=== PATIENT | female | born 1945 | race Caucasian/White ===

== ENCOUNTER 2022-05-12 10:10 | Inpatient (IN) | payer MEDICARE, OTHER ==
[~2022-05-12] VITALS: Ht 152.4 cm; Wt 85.0 kg
[2022-05-12 10:29] VITALS: BP 133/47
[2022-05-12] MEDS ORDERED: TRAZ-182 PO (11:30)
[2022-05-12] MEDS ORDERED: BENZ-13 PO (11:30)
[2022-05-12] MEDS ORDERED: LEVO100T78 PO (11:30)
[2022-05-12] MEDS ORDERED: METF-442 PO (11:30)
[2022-05-12] MEDS ORDERED: PREG75CA PO (11:30)
[2022-05-12] MEDS ORDERED: LOSA100T3 PO (11:30)
[2022-05-12] MEDS ORDERED: NEBI5TAB8 PO (11:30)
[2022-05-12] MEDS ORDERED: DEXTROSE 50% 50 ML DISP.SYRIN IV PRN (11:45)
[2022-05-12] MEDS ORDERED: INSULIN REGULAR, HUMAN 300 UNITS/3 ML VIAL SQ PRN (11:45)
[2022-05-12] MEDS ORDERED: BENZONATATE 100 MG CAPSULE PO PRN (13:00)
[2022-05-12] MEDS: PREGABALIN 25 MG CAPSULE PO SCH ×2 (13:16→16:59)
[2022-05-12] MEDS ORDERED: DOCUSATE SODIUM 100 MG CAPSULE PO PRN (14:00)
[2022-05-12] MEDS ORDERED: ONDANSETRON 4 MG/2 ML VIAL IV PRN (14:00)
[2022-05-12] MEDS ORDERED: MAGNESIUM HYDROXIDE 30 ML LIQUID UDC PO PRN (14:00)
[2022-05-12] MEDS ORDERED: ACETAMINOPHEN 325 MG TABLET PO PRN (14:00)
[2022-05-12 14:44] VITALS: BP 131/49
[2022-05-12 14:57] LABS: HEMATOCRIT 32.6 % (31.2-41.9); MEAN CORPUSCULAR HEMOGLOBIN 28.7 uug (24.7-32.8); MEAN CORPUSCULAR VOLUME 89.3 fL (75.5-95.3); PLATELET COUNT (AUTO) 394 K/uL (179-408)
[2022-05-12 15:14] LABS: CARBON DIOXIDE 27 mmol/L (21-32); CHLORIDE 98 mmol/L (98-107); CREATININE 0.9 mg/dL (0.6-1.3); GLUCOSE 177 mg/dL (74-106); POTASSIUM 5.2 mmol/L (3.5-5.1); UREA NITROGEN, BLOOD 21 mg/dL (7-18)
[2022-05-12 15:18] LABS: MAGNESIUM 1.7 mg/dL (1.8-2.4); PHOSPHOROUS 4.4 mg/dL (2.5-4.9)
[2022-05-12 15:40] LABS: IRON, SERUM 37 ug/dL (50-175)
[2022-05-12 16:01] LABS: *BILIRUBIN,URIN NEGATIVE (NEGATIVE); *BLOOD, URINE NEGATIVE (NEGATIVE); *COLOR,URINE YELLOW (YELLOW); *KETONES,URINE NEGATIVE (NEGATIVE); *UROBILINOGEN,URINE 0.2 E.U./dl (NORMAL); LEUKOCYTE ESTERASE ,URINE TRACE (NEGATIVE); NITRITE, URINE NEGATIVE (NEGATIVE); PH,URINE 5.5 (5.0-8.0); UGLUCOSE TRACE (NEGATIVE)
[2022-05-12 16:09] LABS: *CLARITY,URINE HAZY (CLEAR)
[2022-05-12 16:13] LABS: BACTERIA,URINE FEW /HPF (NONE SEEN); SQUAMOUS EPITHELIAL CELL,UR NONE SEEN /HPF (NONE SEEN)
--- NOTE | 2022-05-12 16:30 | NUR ---
Pt admitted to Tele with SNR 1 deg av block with rate of 62. PT anguillan speaking as primary language but able to converse in simple Kazakh conversation. Noted redness on BOBO LE's with + 4 edema. Negative Homans sign Legs elevated to promote decrease in swelling. IV on left hand intact no s/s of infiltration. Pt denies any c/o pain. Received admitting orders. Pt ambulatory to bathroom with good balance independently. Call light is within reach.
[2022-05-12] MEDS: NEBIVOLOL 5 MG PO SCH (16:55)
[2022-05-12] MEDS: METFORMIN 1000MG TABLET PO SCH (16:55)
[2022-05-12] MEDS: BLOOD SUGAR DIAGNOSTIC 1 EACH STRIP VI SCH ×2 (16:59→20:21)
[2022-05-12] MEDS: INSULIN REGULAR, HUMAN 300 UNIT/3 ML VIAL SQ PRN (17:01)
--- NOTE | 2022-05-12 19:30 | NUR ---
Received patient lying in bed. AAOx4. Mainly Nepali speaking. In no apparent distress. Denies any SOB. Complain of pain on BLE pain. BLE with severe edema. Encourage to elevate while lying in bed. Left hand PIV intact and patent. Sinus coy on tele with HR of 55/min. Needs assessed and attended to. Safety measure initiated and call light within reached.
[2022-05-12] MEDS: CEFAZOLIN 2 G in IV DEXTROSE 5% 100 ML IV SCH (20:18)
[2022-05-12] MEDS: MELATONIN 3 MG TABLET PO PRN (20:18)
[2022-05-12] MEDS: TRAZODONE 50 MG TABLET PO SCH (20:18)
[2022-05-12] MEDS: INSULIN GLARGINE,HUM 300 UNITS/3 ML CARTRIDGE SQ SCH (20:24)
[2022-05-12 20:41] VITALS: BP 102/39
[2022-05-12] MEDS ORDERED: CEFAZOLIN 1 G VIAL IM SCH (22:00)
--- NOTE | 2022-05-12 22:00 | NUR ---
Noted left hand swollen, PIV appears to be infiltrated. Discontinued PIV on left hand and place new PIV on right FA #[id number].
[2022-05-13 00:11] VITALS: BP 120/39
[2022-05-13 04:00] VITALS: BP 123/44
[2022-05-13] MEDS: CEFAZOLIN 2 G in IV DEXTROSE 5% 100 ML IV SCH ×3 (04:16→20:24)
[2022-05-13] MEDS: TRAMADOL HCL 50 MG TABLET PO PRN ×2 (04:21→13:50)
--- NOTE | 2022-05-13 05:29 | NUR ---
No adverse reaction noted from IV antibiotic. SR with 1st degree AVB on tele with HR of 58/min. Tramadol given for complain of pain on BLE and effective. Needs attended to and met. Safety measure maintained and call light within reached.
[2022-05-13] MEDS: LEVOTHYROXINE SODIUM 100 MCG TABLET PO SCH (06:04)
[2022-05-13] MEDS: BLOOD SUGAR DIAGNOSTIC 1 EACH STRIP VI SCH ×4 (06:30→20:24)
--- NOTE | 2022-05-13 08:00 | NUR ---
Pt is in no acute distress. Offered ice on left arm (prior iv site) swelling pt refused. Discussed plan of care with pt re: pain management. Pt agreeable with plan of care. Call light is within reach.
[2022-05-13 08:20] LABS: HEMATOCRIT 32.6 % (31.2-41.9); MEAN CORPUSCULAR HEMOGLOBIN 29.3 uug (24.7-32.8); MEAN CORPUSCULAR VOLUME 88.1 fL (75.5-95.3); PLATELET COUNT (AUTO) 434 K/uL (179-408)
[2022-05-13 08:47] LABS: CARBON DIOXIDE 27 mmol/L (21-32); CHLORIDE 100 mmol/L (98-107); CREATININE 0.7 mg/dL (0.6-1.3); GLUCOSE 111 mg/dL (74-106); MAGNESIUM 1.9 mg/dL (1.8-2.4); PHOSPHOROUS 3.3 mg/dL (2.5-4.9); POTASSIUM 4.6 mmol/L (3.5-5.1); UREA NITROGEN, BLOOD 17 mg/dL (7-18)
[2022-05-13] MEDS: METFORMIN 1000MG TABLET PO SCH ×2 (08:48→16:58)
[2022-05-13] MEDS: FUROSEMIDE 20 MG/2 ML VIAL IV SCH (08:48)
[2022-05-13] MEDS: NEBIVOLOL 5 MG PO SCH ×2 (08:48→16:58)
[2022-05-13] MEDS: PREGABALIN 25 MG CAPSULE PO SCH ×3 (08:48→17:00)
[2022-05-13] MEDS: INSULIN REGULAR, HUMAN 300 UNIT/3 ML VIAL SQ PRN (08:50)
[2022-05-13] MEDS ORDERED: LOSARTAN POTASSIUM 50 MG TABLET PO SCH (09:00)
[2022-05-13 09:47] LABS: CHOLESTEROL 231 mg/dL (<200); HDL CHOLESTEROL 74 mg/dL (40-60); TRIGLYCERIDES 125 MG/DL (30-150)
[2022-05-13 11:34] VITALS: BP 138/51
[2022-05-13] MEDS: SOD FERRIC GLUC COMPLX/SUCROSE 125 MG in IV NORMAL SALINE 100 ML IV SCH (13:48)
[2022-05-13] MEDS: ASPIRIN 81 MG TAB.CHEW PO SCH (14:38)
[2022-05-13 15:42] VITALS: BP 139/44
--- NOTE | 2022-05-13 19:30 | NUR ---
Received patient lying in bed. AAOx4. In no apparent distress. No complain of pain or SOB at this time. Midline on left upper arm intact and patent. NSR on tele with HR of 62/min. Needs assessed and attended to. Safety measure initiated and call light within reached.
[2022-05-13 20:10] VITALS: BP 152/56
[2022-05-13] MEDS: MELATONIN 3 MG TABLET PO PRN (20:24)
[2022-05-13] MEDS: ATORVASTATIN 20 MG TABLET PO SCH (20:24)
[2022-05-13] MEDS: TRAZODONE 50 MG TABLET PO SCH (20:24)
[2022-05-13] MEDS: INSULIN GLARGINE,HUM 300 UNITS/3 ML CARTRIDGE SQ SCH (20:25)
[2022-05-14 00:05] VITALS: BP 153/62
[2022-05-14] MEDS: CEFAZOLIN 2 G in IV DEXTROSE 5% 100 ML IV SCH ×3 (03:16→20:11)
[2022-05-14] MEDS: TRAMADOL HCL 50 MG TABLET PO PRN ×3 (03:24→21:07)
[2022-05-14 04:15] VITALS: BP 152/60
--- NOTE | 2022-05-14 05:17 | NUR ---
No adverse reaction noted from IV antibiotic. Sinus coy with 1st degree AVB on tele with HR of 48/min. Tramadol given for complain of pain on BLE and effective. Needs attended to and met. Assisted to bathroom ad judie. Safety measure maintained and call light within reached.
[2022-05-14] MEDS: LEVOTHYROXINE SODIUM 100 MCG TABLET PO SCH (06:04)
[2022-05-14] MEDS: BLOOD SUGAR DIAGNOSTIC 1 EACH STRIP VI SCH ×4 (06:38→20:09)
[2022-05-14 07:38] LABS: HEMATOCRIT 34.1 % (31.2-41.9); MEAN CORPUSCULAR HEMOGLOBIN 28.8 uug (24.7-32.8); MEAN CORPUSCULAR VOLUME 87.8 fL (75.5-95.3); PLATELET COUNT (AUTO) 455 K/uL (179-408)
[2022-05-14 07:45] LABS: CREATININE 0.7 mg/dL (0.6-1.3); PHOSPHOROUS 3.6 mg/dL (2.5-4.9); POTASSIUM 4.4 mmol/L (3.5-5.1)
--- NOTE | 2022-05-14 08:00 | NUR ---
AWAKET AND ORIENTED X3 [place]OH[place] SPEAKING C/O OF ON AND OFF LEG PAIN. ENCOURAGED TO STAY IN BED AND ELEVATE BLE. DENIES SOB BUT C/O MILD TO MODERATE PAIN. CONTINUE WITH PAIN MANAGEMENT
[2022-05-14] MEDS: FUROSEMIDE 20 MG/2 ML VIAL IV SCH (08:20)
[2022-05-14] MEDS: PREGABALIN 25 MG CAPSULE PO SCH ×3 (08:20→17:14)
[2022-05-14] MEDS: ASPIRIN 81 MG TAB.CHEW PO SCH (08:20)
[2022-05-14] MEDS: METFORMIN 1000MG TABLET PO SCH ×2 (08:21→17:14)
[2022-05-14] MEDS: LISINOPRIL 10 MG TABLET PO SCH (08:21)
[2022-05-14] MEDS: NEBIVOLOL 5 MG PO SCH ×2 (08:22→17:14)
[2022-05-14 11:41] VITALS: BP 139/55
--- NOTE | 2022-05-14 12:00 | NUR ---
NO ACUTE CHANGE STATUS FROM MORNING ASSESSMENT
[2022-05-14] MEDS: SOD FERRIC GLUC COMPLX/SUCROSE 125 MG in IV NORMAL SALINE 100 ML IV SCH (14:56)
[2022-05-14 16:14] VITALS: BP 135/51
--- NOTE | 2022-05-14 16:45 | NUR ---
CONTINUE TELE STATUS ORDERED REMAINS SR ON MONITOR
--- NOTE | 2022-05-14 19:30 | NUR ---
Received patient lying in bed. AAOx4. In no apparent distress. No complain of pain to BLE at this time. No SOB. Midline on left upper arm intact and patent. Sinus coy on tele with HR of 54/min. Needs assessed and attended to. Safety measure initiated and call light within reached.
[2022-05-14 19:34] VITALS: BP 111/46
[2022-05-14] MEDS: ATORVASTATIN 20 MG TABLET PO SCH (20:06)
[2022-05-14] MEDS: MELATONIN 3 MG TABLET PO PRN (20:06)
[2022-05-14] MEDS: TRAZODONE 50 MG TABLET PO SCH (20:06)
[2022-05-14] MEDS: INSULIN GLARGINE,HUM 300 UNITS/3 ML CARTRIDGE SQ SCH (20:10)
[2022-05-14 23:50] VITALS: BP 120/51
[2022-05-15] MEDS: CEFAZOLIN 2 G in IV DEXTROSE 5% 100 ML IV SCH ×3 (04:03→20:28)
[2022-05-15 04:31] VITALS: BP 150/63
--- NOTE | 2022-05-15 05:54 | NUR ---
Slept well during the night. No adverse reaction noted from IV antibiotic. Sinus coy with 1st degree AVB on tele with HR of 46/min. Tessalon gabino given for cough and effective. Tramadol given for complain of pain on BLE and effective. Needs attended to and met. Assisted to bathroom ad judie. Safety measure maintained and call light within reached.
[2022-05-15] MEDS: LEVOTHYROXINE SODIUM 100 MCG TABLET PO SCH (06:08)
[2022-05-15] MEDS: BLOOD SUGAR DIAGNOSTIC 1 EACH STRIP VI SCH ×4 (06:38→20:22)
[2022-05-15 06:57] LABS: HEMATOCRIT 36.5 % (31.2-41.9); MEAN CORPUSCULAR HEMOGLOBIN 28.8 uug (24.7-32.8); MEAN CORPUSCULAR VOLUME 88.4 fL (75.5-95.3); PLATELET COUNT (AUTO) 503 K/uL (179-408)
--- NOTE | 2022-05-15 08:00 | NUR ---
AWAKE ALERT AND ORIENTED X3 PORTUGUES[place] SPEAKING DENIES ACUTE PAIN OR RESPIRATORY DISTRESS. DENIES ACUTE PAIN SR ON MONITOR
[2022-05-15 08:37] LABS: CARBON DIOXIDE 31 mmol/L (21-32); CHLORIDE 103 mmol/L (98-107); CREATININE 0.7 mg/dL (0.6-1.3); GLUCOSE 92 mg/dL (74-106); POTASSIUM 4.7 mmol/L (3.5-5.1); UREA NITROGEN, BLOOD 14 mg/dL (7-18)
[2022-05-15] MEDS: FUROSEMIDE 20 MG/2 ML VIAL IV SCH (08:37)
[2022-05-15] MEDS: ASPIRIN 81 MG TAB.CHEW PO SCH (08:37)
[2022-05-15] MEDS: LISINOPRIL 10 MG TABLET PO SCH (08:37)
[2022-05-15] MEDS: PREGABALIN 25 MG CAPSULE PO SCH ×3 (08:37→16:24)
[2022-05-15] MEDS: TRAMADOL HCL 50 MG TABLET PO PRN ×2 (08:37→20:20)
[2022-05-15 08:38] LABS: MAGNESIUM 1.9 mg/dL (1.8-2.4); PHOSPHOROUS 3.5 mg/dL (2.5-4.9)
[2022-05-15] MEDS: METFORMIN 1000MG TABLET PO SCH ×2 (08:43→16:25)
[2022-05-15] MEDS: NEBIVOLOL 5 MG PO SCH ×2 (08:43→16:25)
[2022-05-15 11:36] VITALS: BP 152/57
[2022-05-15 11:39] VITALS: BP 152/57
--- NOTE | 2022-05-15 12:00 | NUR ---
SEEN BY PHYSICAL THERAPIST SEE NOTES
[2022-05-15] MEDS: SOD FERRIC GLUC COMPLX/SUCROSE 125 MG in IV NORMAL SALINE 100 ML IV SCH (13:59)
[2022-05-15] MEDS ORDERED: LISI10TA29 PO (14:42)
[2022-05-15] MEDS ORDERED: MELA3TAB41 PO (14:42)
[2022-05-15] MEDS ORDERED: Blood Sugar Diagnostic VI (14:42)
[2022-05-15] MEDS ORDERED: TRAM50TA2 PO (14:42)
[2022-05-15] MEDS ORDERED: ONDA4VIA23 PO (14:42)
[2022-05-15] MEDS ORDERED: MAGN400O6 PO (14:42)
[2022-05-15] MEDS ORDERED: ATOR20TA PO (14:42)
[2022-05-15] MEDS ORDERED: DEXT50DI8 IV (14:42)
[2022-05-15] MEDS ORDERED: ASPI81TA31 PO (14:42)
[2022-05-15] MEDS ORDERED: ACET325T53 PO (14:42)
[2022-05-15] MEDS ORDERED: Insulin Glargine,Hum SQ (14:42)
[2022-05-15] MEDS ORDERED: INSU100V28 SQ ×2 (14:42)
[2022-05-15] MEDS ORDERED: DOCU-141 PO (14:42)
[2022-05-15] MEDS ORDERED: CEFA1VIA19 IM (14:42)
--- NOTE | 2022-05-15 15:08 | NUR ---
CONTINUE IV ANTIBIOTIC AND FERRLECIT IV VIA ML LEFT UA. CONTINUE 800 FLUID RESTRICTIO OF 800 MLS/DAY
[2022-05-15 15:33] VITALS: BP 152/57
[2022-05-15 15:37] VITALS: BP 137/50
[2022-05-15 20:00] VITALS: BP 140/41
[2022-05-15] MEDS: ATORVASTATIN 20 MG TABLET PO SCH (20:20)
[2022-05-15] MEDS: MELATONIN 3 MG TABLET PO PRN (20:20)
[2022-05-15] MEDS: TRAZODONE 50 MG TABLET PO SCH (20:20)
[2022-05-15] MEDS: INSULIN GLARGINE,HUM 300 UNITS/3 ML CARTRIDGE SQ SCH (20:22)
[2022-05-16] VITALS: BP 131/40
[2022-05-16] MEDS: CEFAZOLIN 2 G in IV DEXTROSE 5% 100 ML IV SCH ×2 (03:08→11:52)
--- NOTE | 2022-05-16 03:40 | NUR ---
Received patient lying in bed. AAOx4. Midline on left upper arm intact and patent. NSR on tele with HR of 83/min. Needs assessed and attended to. Safety measure initiated and call light within reached. Addendum: 05/16/22 at 0343 by NEFTALI VINSON RN Charting for 05/15/22 [id number]
[2022-05-16 04:00] VITALS: BP 151/55
--- NOTE | 2022-05-16 05:49 | NUR ---
No adverse reaction noted from IV antibiotic. Sinus coy on tele with HR of 49/min. Tramadol given for complain of pain on BLE and effective. Needs attended to and met. Safety measure maintained and call light within reached.
[2022-05-16] MEDS: LEVOTHYROXINE SODIUM 100 MCG TABLET PO SCH (06:03)
[2022-05-16] MEDS: BLOOD SUGAR DIAGNOSTIC 1 EACH STRIP VI SCH ×2 (06:32→11:51)
[2022-05-16 06:43] LABS: CREATININE 0.8 mg/dL (0.6-1.3); POTASSIUM 4.2 mmol/L (3.5-5.1)
--- NOTE | 2022-05-16 08:00 | NUR ---
RESTING COMFORTABLY IN BED DENIES SOB BUT BEARABLE PAIN BLE. MEDICATED WITH PRN MEDS.. SR ON MONITOR
[2022-05-16] MEDS: FUROSEMIDE 20 MG/2 ML VIAL IV SCH (08:26)
[2022-05-16] MEDS: PREGABALIN 25 MG CAPSULE PO SCH (08:26)
[2022-05-16] MEDS: ASPIRIN 81 MG TAB.CHEW PO SCH (08:26)
[2022-05-16] MEDS: TRAMADOL HCL 50 MG TABLET PO PRN (08:27)
[2022-05-16] MEDS: LISINOPRIL 10 MG TABLET PO SCH (08:27)
[2022-05-16] MEDS: METFORMIN 1000MG TABLET PO SCH (08:28)
[2022-05-16] MEDS: NEBIVOLOL 5 MG PO SCH (08:28)
[2022-05-16 11:10] VITALS: BP 120/45
--- NOTE | 2022-05-16 11:52 | NUR ---
ANCEF IV NOT GIVEN PATIENT IS DISCHARGED
--- NOTE | 2022-05-16 13:01 | NUR ---
DISCHARGED TO [facility] REPORT GIVEN TO SERGEY. MEDICATION AND FOLLOW-UP INSTRUCTION GIVEN
== END 2022-05-16 13:02 | DRG 291 ==
LOC: TELE3 10:10
PROVIDERS: ADMIT Internal Medicine; ATTEND Internal Medicine
PROC: 05HC33Z Insertion of Infusion Device into Left Basilic Vein, Percutaneous Approach (ICD-10-PCS; principal; 2022-05-13)
DX: I11.0 Hypertensive heart disease with heart failure (principal); I50.33 Acute on chronic diastolic (congestive) heart failure; E87.1 Hypo-osmolality and hyponatremia; L03.115 Cellulitis of right lower limb; L03.116 Cellulitis of left lower limb; N39.0 Urinary tract infection, site not specified; R60.0 Localized edema; D50.9 Iron deficiency anemia, unspecified; E78.5 Hyperlipidemia, unspecified; G47.8 Other sleep disorders; E11.9 Type 2 diabetes mellitus without complications; Z79.4 Long term (current) use of insulin; Z79.84 Long term (current) use of oral hypoglycemic drugs; E03.9 Hypothyroidism, unspecified; G89.29 Other chronic pain; M47.897 Other spondylosis, lumbosacral region; Z79.899 Other long term (current) drug therapy; E66.01 Morbid (severe) obesity due to excess calories; Z68.36 Body mass index [BMI] 36.0-36.9, adult
CPT/HCPCS: 36415; 71045; 83550; 83605; 83735; 84100; 84484; 85025; 87040; 93005; 93307; G0378; J0690; J1815; J1940; J2405; J2916